=== PATIENT | female | born 1975 | race Caucasian/White ===

== ENCOUNTER → 2017-08-10 14:11 | Outpatient (CLI) | payer MEDICAID ==
[2014-05-18 09:08] VITALS: BMI 28.2
[~2017-08-10 14:11] MED LIST: ALEVE220 MG PO; DESERYL100 MG PO; HYDROCODON-ACE1 EAC7 PO; ZANAFLEX4 MG PO
== END | disposition home or self-care (01) ==
LOC: D.MAMMO 13:45
DX: Z12.31 Encounter for screening mammogram for malignant neoplasm of breast (principal)

== ENCOUNTER → 2017-08-23 12:50 | Outpatient (CLI) | payer MEDICAID ==
[2014-05-18 09:08] VITALS: BMI 28.2
== END | disposition home or self-care (01) ==
LOC: D.MAMMO 10:30
DX: R92.8 Other abnormal and inconclusive findings on diagnostic imaging of breast (principal)

== ENCOUNTER → 2018-08-17 21:19 | Outpatient (CLI) | payer MEDICAID ==
[2014-05-18 09:08] VITALS: BMI 28.2
== END | disposition home or self-care (01) ==
LOC: D.MAMMO 15:30
DX: Z12.31 Encounter for screening mammogram for malignant neoplasm of breast (principal)

== ENCOUNTER 2020-06-03 05:39 | Day surgery (SDC) | payer MEDICAID ==
[~2020-06-03] VITALS: Ht 170.2 cm; Wt 0.5 kg
--- NOTE | ~2020-06-03 | HP ---
PATIENT: ANGELIQUE SHANE MEDICAL RECORD: [id number] ACCOUNT: [id number] LOCATION:[facility] : 71 ADMISSION DATE: 06/03/20 PCP: LENA THURSTON [facility] HISTORY AND PHYSICAL EXAMINATION PREOPERATIVE HISTORY AND PHYSICAL HISTORY OF PRESENT ILLNESS: Ms. Shane is a 45-year-old female with chronic left-sided sinusitis. She is being admitted for left-sided sinus surgery and turbinate reduction. PAST SURGICAL HISTORY: Includes tubal ligation, multiple ACL repairs, abdominal ablation. CURRENT MEDICATIONS: Buspirone, Flexeril, and tramadol. ALLERGIES: TALWIN. PHYSICAL EXAMINATION: GENERAL: She is healthy-appearing, developmentally normal. FACE: Normal, symmetric, no lesions. EYES: Sclerae and conjunctivae are normal. EARS: Canals and TMs normal. NOSE: Left side swollen, congested with drainage. ORAL CAVITY AND OROPHARYNX: He has got a decayed premolar on the left side. CT shows opacification of the left maxillary sinus, ethmoids and frontal sinus. CHEST: Clear. CARDIOVASCULAR: Regular rate and rhythm, no murmur. IMPRESSION: Left-sided sinusitis. PLAN: Left middle meatal antrostomy, left anterior ethmoidectomy, left frontal sinusotomy, bilateral turbinate reduction. She is also going to get the tooth taken care of. TRANSINT:[id number] Voice Confirmation ID: [id number] DOCUMENT ID: [id number] MANDY ARRIAZA MD CC: [id number] DICTATION DATE: 05/30/20 1027 CLERICAL TRANSCRIBER: 05/30/20 1119 [facility] [address] [place] [address]
--- NOTE | ~2020-06-03 | OP ---
PATIENT NAME: ANGELIQUE LOPEZ MEDICAL RECORD: [id number] :71 LOCATION:[facility] ADMISSION DATE: SURGEON: OUSMANE PINTO MD DATE OF OPERATION: 06/03/2020 PREOPERATIVE DIAGNOSES: Chronic sinusitis, nasal obstruction. POSTOPERATIVE DIAGNOSES: Chronic sinusitis, nasal obstruction. PROCEDURE: Left endoscopic middle meatal antrostomy and left ethmoidectomy, left frontal sinusotomy and bilateral inferior turbinate reduction. SURGEON: Ousmane Pinto MD ANESTHESIA: General orotracheal. BLOOD LOSS: Less than 10 cc. SPECIMENS: Multiple cultures from the left maxillary and anterior ethmoid sinuses. COMPLICATIONS: None. NASAL PACKING: None. DISPOSITION: Recovery stable. PROCEDURE NOTE: She was brought to the operating room and placed in supine position, sedated and intubated by anesthesia. The table was turned 90 degrees. Nose examined using a headlight and nasal speculum, the inferior turbinate, floor of the nose on the left, uncinate middle turbinate were injected with a total of less than 2 mL of 1% lidocaine with 1:100,000 epinephrine and 3 Afrin pledgets were placed in each side of the nose. Then, all the left side pledgets were removed. There was a lot of congestion, purulent drainage. So to get a better view then outfractured the inferior turbinate with a [place] and get a good view of the middle turbinate which was granular, inflamed, and red. There was copious purulence coming from the middle meatus that was suctioned out. A large curved olive tip suction was inserted into the maxillary sinus, tremendous amount of purulence was extruding there. Luki trap was used to suction some of that for cultures. Once the maxillary sinus was drained, then, the microdebrider was inserted took down some of the anterior ethmoid cells starting inferomedially with the ethmoid bulla evacuate of that some purulence and then take down portion of the uncinate and open up the maxillary sinus nicely. There was a lot of inflamed polypoid tissue in the area that opened up nicely and then thin curved olive tip suction was inserted just behind the anterior attachment of the middle turbinate and probed up into the frontal sinus. It was suctioned and then irrigated slowly with some saline, but it was able to go all the way up in the duct that was removed. Maxillary sinus, ethmoid cavity was all irrigated repeatedly with saline. Both inferior turbinates were medialized with a freer. A Gruenwald was used to take down the inferior redundant portion, there both conch bullosa. Suction cautery to stop any bleeding and both outfractured with a [place] elevator. The nasopharynx was suctioned and the left side was examined again, carefully with the scope. Maxillary sinus, wide open. Ethmoid cavity was clean. There was really no bleeding. Some mupirocin was placed in the ethmoid cavity there and the maxillary sinus and she was awakened, extubated, OPERATIVE REPORT [id number] ANGELIQUE LOPEZ and transported to recovery in good condition. No complications. TRANSINT:[id number] Voice Confirmation ID: [id number] DOCUMENT ID: [id number] OUSMANE PINTO MD CC: [id number] DICTATION DATE: 06/03/20955 RADIO DESPATCHER: 06/03/202035 [facility] 06/03/20 [address] [place] [address]
[~2020-06-03 05:39] MED LIST changes: +BUSPAR10 MG PO; +CYCLOBENZAPRINE10 MG PO
--- NOTE | 2020-06-03 06:24 | NUR ---
VITAL SIGNS: BP LEFT 134/81 BP RIGHT 138/83 TEMP 97.3 HR 95 O2 SAT 99% RR 18
--- NOTE | 2020-06-03 06:25 | NUR ---
PT DENIES PAIN/NEEDS AT THIS TIME. NO OPEN WOUNDS/RASHES. DENIES SOB/CHEST PAIN. NPO SINCE 219906/02/2020
--- NOTE | 2020-06-03 06:28 | NUR ---
STATES NO ADVANCE DIRECTIVE/LIVING WILL. AT BEDSIDE. HE IS THE EMERGENCY CONTACT. RONALD LOPEZ [phone]
--- NOTE | 2020-06-03 06:32 | NUR ---
PT READY FOR PROCEDURE AT 0633.
[2020-06-03 07:54] LABS: HEMATOCRIT 42.3 % (36.0-48.0); HEMOGLOBIN 13.7 g/dL (12-16); MCH 29.5 pg (26.0-34.0); MCHC 32.4 g/dL (31.0-37.0); MCV 91.2 fL (80.0-100.0); MEAN PLATELET VOLUME 9.6 fL (7.4-10.4); RBC 4.64 10x6/uL (4.00-5.40); RDW 13.5 % (11.5-14.5); WBC 8.9 10x3/uL (4.8-10.8)
[2020-06-03 08:26] VITALS: BP 134/81; Ht 170.2 cm; Wt 0.5 kg
--- NOTE | 2020-06-03 10:57 | NUR ---
DC INSTRUCTIONS GIVEN TO PT/FAMILY. STATE UNDERSTANDING. DC'D IV CATH FULLY INTACT. WILL DC SHORTLY.
--- NOTE | 2020-06-03 11:23 | NUR ---
PT LEFT UNIT VIA WC AT 1010
== END 2020-06-03 11:10 | disposition home or self-care (01) ==
LOC: D.OPS 05:39 → D.PAN 08:00 → D.OPS 08:10
PROVIDERS: Anesthesiology; ATTEND Otolaryngology
DX: J32.8 Other chronic sinusitis (principal); J34.89 Other specified disorders of nose and nasal sinuses